=== PATIENT | male | born 2000 | race Caucasian/White ===

== ENCOUNTER 2018-12-13 16:21 | Emergency (ER) | payer OTHER ==
[2018-12-13] MEDS ORDERED: NS 0.9% 1000 ML** 1,000 ML IV ONE (17:53)
[2018-12-13] MEDS ORDERED: fentaNYL* 50 MCG/ML 2 ML VIAL (100 MCG VIAL) IV SLOW PU ONE (17:56)
[2018-12-13] MEDS ORDERED: Midazolam* 1 MG/ML 10 ML VIAL (10 MG) IV ONE (17:56)
--- NOTE | 2018-12-13 18:03 | ED ---
Upper Extremity Pain - HPI Summary HPI Summary: Pt is a 18 y/o M presenting to the ED with a chief complaint of shoulder pain onset today around 1500. The pt presently has no other symptoms. - History of Current Complaint Chief Complaint: EDExtremityUpper Stated Complaint: RT SHOULDER INJURY Time Seen by Provider: 12/13/18 17:47 Hx Obtained From: Patient Onset/Duration: Started Hours Ago, Still Present Timing: Constant, Lasting Hours Severity Initially: Moderate Severity Currently: Moderate Pain Location: Shoulder - right Character: Sharp Aggravating Factor(s): Movement Alleviating Factor(s): Nothing - Allergies/Home Medications Allergies/Adverse Reactions: Allergies Allergy/AdvReac Type Severity Reaction Status Date / Time No Known Allergies Allergy Verified 12/13/18 16:56 PMH/Surg Hx/FS Hx/Imm Hx Previously Healthy: Yes Endocrine/Hematology History: Denies: Hx Diabetes Cardiovascular History: Denies: Hx Hypertension Infectious Disease History: No Infectious Disease History: Denies: Traveled Outside the [place] in Last 30 Days - Family History Known Family History: Negative: Renal Disease - Social History Alcohol Use: None Hx Substance Use: No Substance Use Type: Reports: None Hx Tobacco Use: No Smoking Status (MU): Never Smoked Tobacco Review of Systems Negative: Fever Positive: Arthralgia, Decreased ROM All Other Systems Reviewed And Are Negative: Yes Physical Exam - Summary Physical Exam Summary: Appearance: Well appearing, no pain distress Skin: warm, dry, reflects adequate perfusion Head/face: normal Eyes: EOMI, BA ENT: normal Neck: supple, non-tender Respiratory: CTA, breath sounds present Cardiovascular: RRR, pulses symmetrical Abdomen: non-tender, soft Musculoskeletal: tenderness and deformity of the R shoulder Neuro: no neurovascular deficit, sensory motor intact, A&Ox3 Triage Information Reviewed: Yes Vital Signs On Initial Exam: Initial Vitals Temp Pulse Resp BP Pulse Ox 99.2 F 71 16 120/72 98 12/13/18 16:53 12/13/18 16:53 12/13/18 16:53 12/13/18 16:53 12/13/18 16:53 Vital Signs Reviewed: Yes Procedures - Procedure Summary Procedure Summary: PROCEDURE NOTE FOR SHOULDER REDUCTION. pt rt shoulder reduced under conscious sedation. pt given versed and fentanyl iv and used traction and countertraction technique to reduce the rt shoulder dislocation. pt tollerated well. no complications. will observe the pt still sober. PROCEDURE NOTE FOR CONSCIOUS SEDATION. pt given concious sedation with versed and fentalnyl. pt shoulder dislocation relocated. pt tolerated well.no complications. Diagnostics - Vital Signs Vital Signs Temp Pulse Resp BP Pulse Ox 12/13/18 16:53 99.2 F 71 16 120/72 98 - Laboratory Lab Statement: Any lab studies that have been ordered have been reviewed, and results considered in the medical decision making process. - Radiology Shoulder x-ray Radiology Interpretation Completed By: Radiologist Summary of Radiographic Findings: 1. Anterior subcoracoid dislocation of the humerus. 2. Hill-Sachs fracture. ED physician has reviewed this report. Course/Dx - Course Course Of Treatment: Pt is a 18 y/o M presenting to the ED with a chief complaint of shoulder pain onset today around 1500. The pt presently has no other symptoms. After setting the shoulder in place, the pt will be discharged home with a dx of R shoulder dislocation. - Diagnoses Provider Diagnoses: Recurrent shoulder dislocation Discharge - Sign-Out/Discharge Documenting (check all that apply): Patient Departure Patient Received Moderate/Deep Sedation with Procedure: Yes - Discharge Plan Condition: Stable Disposition: HOME Prescriptions: Ibuprofen TAB* [Motrin TAB* 600 MG] 600 mg PO Q8H PRN #20 tab MDD 3 PRN Reason: Pain Oxycodone HCl/Acetaminophen [Percocet] 1 tab PO TID #6 tab MDD 3 Patient Education Materials: Moderate Sedation (ED), Procedural Sedation (ED) Referrals: [facility] [Outside] Additional Instructions: Please follow up at the [facility] or with your primary care physician within the next 3 days. Return to the Emergency Department with any new or worsening symptoms. - Billing Disposition and Condition Condition: STABLE Disposition: Home - Attestation Statements Document Initiated by Scribe: Yes Documenting Scribe: Madhuri Hu Provider For Whom Tom is Documenting (Include Credential): Jasper Kennedy MD. Scribe Attestation: Madhuri Bedoya, verónicaed for Jasper Kenndey MD. on 12/13/18 at 2020. Scribe Documentation Reviewed: Yes Provider Attestation: The documentation as recorded by the Madhuri barrera accurately reflects the service I personally performed and the decisions made by me, Jasper Kennedy MD. Status of Scribe Document: Viewed
[2018-12-13 20:28] VITALS: BP 128/78
== END 2018-12-13 20:26 | disposition home or self-care (01) ==
LOC: ED 16:21
DX: M24.411 Recurrent dislocation, right shoulder (principal); S42.291A Other displaced fracture of upper end of right humerus, initial encounter for closed fracture; X58.XXXA Exposure to other specified factors, initial encounter; Y92.9 Unspecified place or not applicable
CPT/HCPCS: 23650; 96360; 96361; 99156; 99285; J2250; J3010

== ENCOUNTER 2019-12-03 00:54 | Emergency (ER) | payer OTHER ==
--- NOTE | 2019-12-03 01:38 | ED ---
Upper Extremity Pain - HPI Summary HPI Summary: 19 year old male presents with right shoulder pain today. He states he has history of dislocation. He states that he had some alcohol and went to get up out of bed and felt his shoulder dislocate. He has had a previous dislocation ( 4) to the shoulder. He states that doesn't hurt as much as previous dislocation. No numbness or tingling. no other injury. no medical conditions. - History of Current Complaint Chief Complaint: EDExtremityUpper Stated Complaint: R SHOULDER INJURY PER PT Time Seen by Provider: 12/03/19 01:20 - Allergies/Home Medications Allergies/Adverse Reactions: Allergies Allergy/AdvReac Type Severity Reaction Status Date / Time No Known Allergies Allergy Verified 12/03/19 01:00 PMH/Surg Hx/FS Hx/Imm Hx Endocrine/Hematology History: Denies: Hx Diabetes Cardiovascular History: Denies: Hx Hypertension Infectious Disease History: No Infectious Disease History: Denies: Traveled Outside the [place] in Last 30 Days - Family History Known Family History: Negative: Renal Disease - Social History Alcohol Use: Rare Hx Substance Use: No Substance Use Type: Reports: None Hx Tobacco Use: No Smoking Status (MU): Never Smoked Tobacco Review of Systems Negative: Fever Negative: Chest Pain Negative: Shortness Of Breath Positive: Myalgia - right shoulder pain All Other Systems Reviewed And Are Negative: Yes Physical Exam Triage Information Reviewed: Yes Vital Signs On Initial Exam: Initial Vitals Temp Pulse Resp BP Pulse Ox 95.6 F 84 18 136/86 99 12/03/19 00:56 12/03/19 00:56 12/03/19 00:56 12/03/19 00:56 12/03/19 00:56 Vital Signs Reviewed: Yes Appearance: Positive: Well-Appearing Skin: Positive: Warm, Dry Head/Face: Positive: Normal Head/Face Inspection Eyes: Positive: Normal, Conjunctiva Clear ENT: Positive: Pharynx normal Respiratory/Lung Sounds: Positive: Clear to Auscultation, Breath Sounds Present Cardiovascular: Positive: Normal, RRR Musculoskeletal: Positive: Limited @ - right shoulder, Other - able to move shoulder, good pulses, good director of safety and security strength Neurological: Positive: Normal Psychiatric: Positive: Normal Procedures - Sedation Patient Received Moderate/Deep Sedation with Procedure: No Diagnostics - Vital Signs Vital Signs Temp Pulse Resp BP Pulse Ox 12/03/19 00:56 95.6 F 84 18 136/86 99 - Laboratory Lab Statement: Any lab studies that have been ordered have been reviewed, and results considered in the medical decision making process. - Radiology shoulder Radiology Interpretation Completed By: ED Physician Summary of Radiographic Findings: no dislocation currently Course/Dx - Course Course Of Treatment: 19 year old male presents with right shoulder pain today. He states he has history of dislocation. He states that he had some alcohol and went to get up out of bed and felt his shoulder dislocate. He has had a previous dislocation (4) to the shoulder. He states that doesn't hurt as much as previous dislocation. No numbness or tingling. no other injury. no medical conditions. On exam tenderness over right shoulder. neurovascular Intact. X- ray shows no dislocation. patient understand and agrees with plan. - Diagnoses Differential Diagnosis/HQI/PQRI: Positive: Fracture (Closed), Strain, Other - dislocation Provider Diagnoses: Right shoulder injury Discharge ED - Sign-Out/Discharge Documenting (check all that apply): Patient Departure - Discharge Plan Condition: Good Disposition: HOME Patient Education Materials: Shoulder Dislocation (ED) Referrals: Stanley Quarles MD [Medical Doctor] - No Primary Care Phys,NOPCP [Primary Care Provider] - Additional Instructions: Keep in sling Take Tylenol and ibuprofen every 6 hours as needed for pain Ice/heat Follow up with ortho Return to ED if develop any new or worsening symptoms - Billing Disposition and Condition Condition: GOOD Disposition: Home
[2019-12-03 02:01] VITALS: BP 123/64
== END 2019-12-03 02:01 | disposition home or self-care (01) ==
LOC: ED 00:54
DX: S49.91XA Unspecified injury of right shoulder and upper arm, initial encounter (principal); X50.9XXA Other and unspecified overexertion or strenuous movements or postures, initial encounter; Y92.003 Bedroom of unspecified non-institutional (private) residence as the place of occurrence of the external cause
CPT/HCPCS: 99282